=== PATIENT | female | born 2005 | race Caucasian/White ===

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

== ENCOUNTER 2023-06-17 14:41 | Emergency (ER) | payer OTHER ==
[~2023-06-17] VITALS: Ht 157.5 cm; Wt 86.2 kg
[~2023-06-17 14:41] MED LIST changes: +CYCL-711 PO; +IBUP-2213 PO; +LID5T TP
[2023-06-17 15:56] VITALS: BP 119/49; PULSE 91; RESP 20; TEMP 98.2; O2SAT 100
[2023-06-17] MEDS ORDERED: ALBU0.0912 IH (18:29)
[2023-06-17] MEDS ORDERED: PROM118S5 PO (18:29)
== END 2023-06-17 18:38 | disposition home or self-care (01) ==
LOC: MED 14:41
DX: J06.9 Acute upper respiratory infection, unspecified (principal); R07.89 Other chest pain; M25.511 Pain in right shoulder; Z79.899 Other long term (current) drug therapy
CPT/HCPCS: 71045; 93005; 99283

== ENCOUNTER 2023-06-19 12:25 | Emergency (ER) | payer OTHER ==
[~2023-06-19] VITALS: Ht 157.5 cm; Wt 86.2 kg
[~2023-06-19 12:25] MED LIST changes: +ALBU0.0912 IH; +PROM118S5 PO
[2023-06-19 12:33] VITALS: BP 132/82; PULSE 124; RESP 16; TEMP 97.4; O2SAT 99
[2023-06-19 13:22] LABS: BASOPHILS # (AUTO) 0.1 K/uL (0.00-0.22); BASOPHILS % (AUTO) 0.6 % (0.0-2.0); EOSINOPHILS # (AUTO) 0.2 K/uL (0-0.4); EOSINOPHILS % (AUTO) 2.7 % (0.0-4.0); HEMATOCRIT 40.1 % (36-48); HEMOGLOBIN 13.4 g/dL (12.0-16.0); LYMPHOCYTES # (AUTO) 1.9 K/uL (2.5-16.5); MEAN CORPUSCULAR HEMOGLOBIN 29 pg (27-31); MEAN CORPUSCULAR HGB CONC 33 g/dL (33-37); MEAN CORPUSCULAR VOLUME 87.8 fL (80-94); MONOCYTES # (AUTO) 0.8 K/uL (0.8-1.0); MONOCYTES % (AUTO) 9.8 % (1.7-9.3); NEUTROPHILS # (AUTO) 5.5 K/uL (1.8-7.7); NEUTROPHILS % (AUTO) 64.9 % (42.2-75.2); PLATELET COUNT (AUTO) 248 K/uL (140-450); RED BLOOD CELL COUNT(AUTO) 4.57 MIL/uL (4.20-5.40); RED CELL DISTRIBUTION WIDTH 13.9 % (11.6-13.7); WHITE BLOOD COUNT (AUTO) 8.5 K/uL (4.5-11.0)
[2023-06-19 13:47] LABS: ALANINE AMINOTRANSFERASE 16 U/L (12-78); ALBUMIN 3.5 g/dL (3.4-5.0); ALKALINE PHOSPHATASE 70 U/L (50-136); ANION GAP 12.7 (8-16); ASPARTATE AMINOTRANSFERASE 15 U/L (15-37); CALCIUM 8.2 mg/dL (8.5-10.1); CARBON DIOXIDE 24.9 mmol/L (21-32); CHLORIDE 106 mmol/L (98-107); CREATININE 0.8 mg/dL (0.6-1.3); GFR ARICAN-AMERICAN 119 mL/min (>90); GFR NON ARICAN-AMERICAN 98 mL/min (>90); GLUCOSE 98 mg/dL (74-106); POTASSIUM 3.6 mmol/L (3.5-5.1); SODIUM SERUM 140 mmol/L (136-145); TOTAL BILIRUBIN 0.2 mg/dL (0.0-1.0); TOTAL PROTEIN, SERUM 6.6 g/dL (6.4-8.2); UREA NITROGEN, BLOOD 9 mg/dL (7-18)
[2023-06-19] MEDS ORDERED: IBUP-2213 PO (14:07)
[2023-06-19] MEDS ORDERED: KETOROLAC 30 MG/ML VIAL IM ONE (14:10)
[2023-06-19 14:28] VITALS: BP 132/82; PULSE 124; RESP 16; TEMP 97.4; O2SAT 99
== END 2023-06-19 14:28 | disposition home or self-care (01) ==
LOC: MED 12:25
DX: R07.89 Other chest pain (principal); R05.9 Cough, unspecified; F17.290 Nicotine dependence, other tobacco product, uncomplicated; Z79.899 Other long term (current) drug therapy
CPT/HCPCS: 36415; 71045; 80053; 84484; 85025; 85379; 93005; 96372; 99285; J1885